=== PATIENT | female | born 1970 | race Caucasian/White ===

== ENCOUNTER 2017-07-01 17:13 | Emergency (ER) | payer BC ==
[~2017-07-01] VITALS: Ht 165.1 cm; Wt 68.0 kg
[2017-07-01 17:40] VITALS: BP 140/74
[2017-07-01] MEDS ORDERED: MORPHINE SULFATE INJ 2 MG/ML DISP.SYRIN IM ONE (18:30)
[2017-07-01] MEDS ORDERED: ONDANSETRON HCL/PF 4 MG/2 ML VIAL IVP ONE (18:30)
[2017-07-01] MEDS ORDERED: MORPHINE SULFATE INJ 4 MG/ML DISP.SYRIN ONE (18:33)
[2017-07-01] MEDS ORDERED: ONDANSETRON HCL/PF 4 MG/2 ML VIAL ONE (18:33)
--- NOTE | 2017-07-01 19:28 | NUR ---
CALLED ELLIOT MCGUIRE, [employer] FIELD ENGINEER WAS PAGED.
--- NOTE | 2017-07-01 19:30 | NUR ---
RECEIVED REPORT FROM SAGRARIO SANTOS FOR [facility].
--- NOTE | 2017-07-01 20:45 | NUR ---
Patient discharged to home in stable condition. Written and verbal after care instructions given. Patient verbalizes understanding of instruction. VSS UPON DISCHARGE
== END 2017-07-01 20:46 | disposition home or self-care (01) ==
LOC: ER 17:17
DX: S42.492A Other displaced fracture of lower end of left humerus, initial encounter for closed fracture (principal); Z85.3 Personal history of malignant neoplasm of breast; W01.0XXA Fall on same level from slipping, tripping and stumbling without subsequent striking against object, initial encounter; Y93.01 Activity, walking, marching and hiking; Y92.89 Other specified places as the place of occurrence of the external cause; Y99.8 Other external cause status
CPT/HCPCS: 29105; 73080; 96372 ×2; 99284; A4606; J2270; J2405; Z7610